=== PATIENT | female | born 1950 | race African-American/Black ===

== ENCOUNTER 2017-01-09 11:34 | Inpatient (IN) | payer MEDICARE, OTHER ==
[~2017-01-09] VITALS: Ht 162.6 cm; Wt 102.5 kg
[2017-01-09 12:28] LABS: BASOPHILS % 0.8 % (0.0-2.0); EOSINOPHILS % 0.2 % (0.0-5.0); HEMATOCRIT. 32.2 % (36.0-48.0); LYMPHOCYTES % 15.3 % (20.0-50.0); MEAN CORPUSCULAR HEMOGLOBIN 37.8 pg (28.0-32.0); MEAN CORPUSCULAR VOLUME 111.3 fL (81.0-99.0); MEAN PLATELET VOLUME 8.9 fl (7.4-10.4); MONOCYTES % 5.7 % (2.0-8.0); PLATELET 218 x1000/uL (130-400); RED CELL DISTRIBUTION WIDTH 14.6 % (11.6-14.6)
[2017-01-09 12:38] LABS: INR 1.6; PROTHROMBIN TIME 16.4 sec (9.4-11.6)
[2017-01-09 12:43] LABS: CARBON DIOXIDE 27 mEq/L (21-32); CHLORIDE 104 mEq/L (98-107)
[2017-01-09 13:27] LABS: PLATELET ESTIMATE NORMAL
[2017-01-09] MEDS ORDERED: SODIUM CHLORIDE 0.9% 1,000 ML IV ONE ×2 (13:37→15:50)
[2017-01-09] MEDS ORDERED: KETOROLAC 30MG/ML VIAL IV ONE (14:00)
[2017-01-09] MEDS ORDERED: PIPERACILLIN/TAZ 3.375G PREMIX 50 ML IV ONE (14:20)
[2017-01-09] MEDS ORDERED: VANCOMYCIN 1 G PREMIX 200 ML IV SCH (14:30)
[2017-01-09] MEDS ORDERED: PIPERACILLIN/TAZOBACTAM 3.375GM/50ML PREMIX IV ONE (14:30)
[2017-01-09 14:40] LABS: CLARITY URINE CLEAR (CLEAR); COLOR URINE DARK YELLOW (YELLOW); GLUCOSE URINE NEGATIVE (NEGATIVE); KETONES URINE TRACE (NEGATIVE); LEUKOCYTE ESTERASE URINE TRACE (NEGATIVE); NITRITE URINE NEGATIVE (NEGATIVE); OCCULT BLOOD URINE NEGATIVE (NEGATIVE); PROTEIN URINE NEGATIVE (NEGATIVE); SPECIFIC GRAVITY URINE 1.017 (1.005-1.030)
[2017-01-09] MEDS ORDERED: MAGNESIUM/ALUMINUM HYDROXIDE/SIMETHICONE 30ML UDC PO PRN (17:45)
[2017-01-09] MEDS ORDERED: ACETAMINOPHEN 650MG/20.3ML UDC GT PRN (17:45)
[2017-01-09] MEDS ORDERED: INFLUENZA VIRUS VACCINE 0.5ML SYR IM ONE (17:45)
[2017-01-09] MEDS ORDERED: IPRATROPIUM/ALBUTEROL 0.5-3(2.5)MG/3ML NEB INH PRN (17:45)
[2017-01-09 18:47] LABS: CARCINO EMBRYONIC ANTIGEN 2.2 ng/ml
[2017-01-09 18:58] LABS: HEPATITIS B SURFACE ANTIGEN NEGATIVE
[2017-01-09 19:07] LABS: FOLIC ACID (FOLATE) SERUM 6.5 ng/mL (>5.38)
[2017-01-09 19:26] LABS: HEPATITIS B CORE AB IGM NEGATIVE
[2017-01-09 19:27] LABS: HEPATITIS A AB IGM NEGATIVE (NEGATIVE)
[2017-01-09] MEDS: HYDROMORPHONE HCL/PF 2MG/ML CPJ IV PRN (21:25)
[2017-01-09 21:30] VITALS: BP 94/55
[2017-01-09] MEDS ORDERED: PNEUMOCOCCAL 23-VAL P-SAC VAC 0.5 ML IM ONE (22:00)
[2017-01-09 22:52] VITALS: BP 94/55
[2017-01-09] MEDS ORDERED: DEXTROSE 50% WATER 50ML SYRINGE IV PRN (23:30)
[2017-01-09] MEDS ORDERED: GABA-529 PO (23:39)
[2017-01-09] MEDS ORDERED: FOLI-43 PO (23:39)
[2017-01-09] MEDS ORDERED: KDUR20 PO (23:39)
[2017-01-10] VITALS (8 sets, daily range): BP systolic 84–103; BP diastolic 56–74
[2017-01-10] MEDS: HYDROMORPHONE HCL/PF 2MG/ML CPJ IV PRN ×2 (00:37→09:34)
[2017-01-10] MEDS: BLOOD SUGAR DIAGNOSTIC STRIP TEST SCH ×4 (06:49→21:00)
[2017-01-10] MEDS: INSULIN LISPRO 100 UNITS/ML SUBCUT SCH ×4 (07:20→21:00)
[2017-01-10 07:31] LABS: BASOPHILS % 0.3 % (0.0-2.0); EOSINOPHILS % 0.1 % (0.0-5.0); HEMATOCRIT. 28.6 % (36.0-48.0); HEMOGLOBIN. 9.9 g/dL (12.0-16.0); LYMPHOCYTES % 12.3 % (20.0-50.0); MEAN CORPUSCULAR HEMOGLOBIN 38.4 pg (28.0-32.0); MEAN CORPUSCULAR VOLUME 110.9 fL (81.0-99.0); MONOCYTES % 6.2 % (2.0-8.0); NEUTROPHILS % 81.1 % (40.0-76.0); PLATELET 173 x1000/uL (130-400); RED BLOOD CELL COUNT 2.58 mill/uL (4.2-5.4); RED CELL DISTRIBUTION WIDTH 14.5 % (11.6-14.6)
[2017-01-10 07:51] LABS: CARBON DIOXIDE 25 mEq/L (21-32); CHLORIDE 107 mEq/L (98-107)
[2017-01-10] MEDS ORDERED: ENOXAPARIN 40MG/0.4ML SYR SUBCUT SCH (09:00)
[2017-01-10] MEDS ORDERED: DOCUSATE SODIUM 100MG CAPSULE PO SCH (09:00)
[2017-01-10] MEDS: DOCUSATE SODIUM 250MG CAPSULE PO SCH (09:34)
[2017-01-10] MEDS ORDERED: CALCIUM CARBONATE 1250MG TABLET (500MG ELEMENTAL CALCIUM) PO NR (10:45)
[2017-01-10] MEDS: SODIUM CHLORIDE 0.9% 1,000 ML IV SCH ×2 (11:39→23:12)
[2017-01-10] MEDS: FOLIC ACID/VITAMIN B COMP W-C TABLET PO SCH (11:39)
[2017-01-10] MEDS: ONDANSETRON HCL 4MG/2ML VIAL IV PRN (11:49)
[2017-01-10] MEDS ORDERED: ERGOCALCIFEROL 50000UNITS CAPSULE PO NR (12:00)
[2017-01-10 13:02] LABS: TOTAL IRON BINDING CAPACITY 38 ug/dL (250-450)
[2017-01-10 16:52] LABS: CLARITY URINE CLOUDY (CLEAR); COLOR URINE ORANGE (YELLOW); GLUCOSE URINE NEGATIVE (NEGATIVE); KETONES URINE NEGATIVE (NEGATIVE); LEUKOCYTE ESTERASE URINE 1+ (NEGATIVE); NITRITE URINE POSITIVE (NEGATIVE); OCCULT BLOOD URINE 2+ (NEGATIVE); PH URINE 5.5 (4.5-8.0); PROTEIN URINE 1+ (NEGATIVE); SPECIFIC GRAVITY URINE 1.025 (1.005-1.030)
[2017-01-10 17:06] LABS: *AMPHETAMINES SCREEN URINE NEGATIVE (NEGATIVE); *BARBITURATES SCREEN URINE NEGATIVE (NEGATIVE); *BENZODIAZEPINES SCREEN URINE NEGATIVE (NEGATIVE); *COCAINE SCREEN URINE NEGATIVE (NEGATIVE); CANNABINOID URINE SCREEN NEGATIVE (NEGATIVE); METHADONE URINE SCREEN NEGATIVE (NEGATIVE); OPIATES URINE SCREEN PRESUMTIVE POSITIVE (NEGATIVE); PHENCYCLIDINE URINE SCREEN NEGATIVE (NEGATIVE)
[2017-01-10] MEDS: ENOXAPARIN 30MG/0.3ML SYR SUBCUT SCH (21:00)
[2017-01-11] VITALS (12 sets, daily range): BP systolic 90–114; BP diastolic 36–82
[2017-01-11] MEDS: LORAZEPAM 2MG/ML CPJ IV NR ×2 (00:48→08:02)
[2017-01-11] MEDS ORDERED: LORAZEPAM 2MG/ML CPJ IV NR (01:30)
[2017-01-11] MEDS ORDERED: LORAZEPAM 2MG/ML CPJ IM NR (02:30)
[2017-01-11] MEDS: BLOOD SUGAR DIAGNOSTIC STRIP TEST SCH ×4 (06:13→21:18)
[2017-01-11 06:46] LABS: BASOPHILS % 0.2 % (0.0-2.0); EOSINOPHILS % 0.3 % (0.0-5.0); HEMATOCRIT. 26.8 % (36.0-48.0); HEMOGLOBIN. 9.3 g/dL (12.0-16.0); LYMPHOCYTES % 20.4 % (20.0-50.0); MEAN CORPUSCULAR HEMOGLOBIN 38.2 pg (28.0-32.0); MEAN CORPUSCULAR VOLUME 110.8 fL (81.0-99.0); MEAN PLATELET VOLUME 9.2 fl (7.4-10.4); MONOCYTES % 8.9 % (2.0-8.0); NEUTROPHILS % 70.2 % (40.0-76.0); PLATELET 171 x1000/uL (130-400); RED BLOOD CELL COUNT 2.42 mill/uL (4.2-5.4); RED CELL DISTRIBUTION WIDTH 14.5 % (11.6-14.6)
[2017-01-11 06:59] LABS: AMMONIA 46 uMol/L (<32)
[2017-01-11] MEDS: INSULIN LISPRO 100 UNITS/ML SUBCUT SCH ×4 (07:20→21:00)
[2017-01-11] MEDS ORDERED: SODIUM BICARBONATE 4% (2.4MEQ) 5ML VIAL IV ONE (07:35)
[2017-01-11] MEDS ORDERED: LIDOCAINE HCL 1% 20ML VIAL (Pyxis) INJ ONE (07:35)
[2017-01-11 07:48] LABS: CARBON DIOXIDE 26 mEq/L (21-32); CHLORIDE 107 mEq/L (98-107)
[2017-01-11] MEDS: FOLIC ACID/VITAMIN B COMP W-C TABLET PO SCH (09:00)
[2017-01-11] MEDS: DOCUSATE SODIUM 250MG CAPSULE PO SCH (09:00)
[2017-01-11] MEDS: CALCIUM CARBONATE 1250MG TABLET (500MG ELEMENTAL CALCIUM) PO SCH (09:00)
[2017-01-11] MEDS ORDERED: RISPERIDONE 0.25MG TABLET PO SCH (10:00)
[2017-01-11] MEDS ORDERED: LORAZEPAM 2MG/ML CPJ IV SCH (10:00)
[2017-01-11] MEDS ORDERED: LORAZEPAM 2MG/ML CPJ IM SCH (10:15)
[2017-01-11] MEDS: ENOXAPARIN 30MG/0.3ML SYR SUBCUT SCH ×2 (10:16→21:12)
[2017-01-11] MEDS: LACTULOSE 20G/30ML UDC PO SCH ×4 (11:52→21:13)
[2017-01-11] MEDS: SODIUM CHLORIDE 0.9% 1,000 ML IV SCH ×2 (11:52→21:15)
[2017-01-11 14:10] LABS: AMMONIA 38 uMol/L (<32)
[2017-01-11 14:19] LABS: ETHANOL BLOOD < 10 mg/dL; T4 FREE 0.92 ng/dL (0.76-1.46)
[2017-01-11] MEDS: LORAZEPAM 0.5MG TABLET PO PRN ×2 (15:03→23:10)
[2017-01-12] VITALS (30 sets, daily range): BP systolic 72–105; BP diastolic 37–69
[2017-01-12] MEDS: LACTULOSE 20G/30ML UDC PO SCH ×3 (05:30→21:19)
[2017-01-12 06:33] LABS: AMMONIA 52 uMol/L (<32)
[2017-01-12] MEDS: SODIUM CHLORIDE 0.9% 1,000 ML IV SCH (06:50)
[2017-01-12] MEDS: BLOOD SUGAR DIAGNOSTIC STRIP TEST SCH ×4 (07:20→21:02)
[2017-01-12] MEDS: INSULIN LISPRO 100 UNITS/ML SUBCUT SCH ×4 (07:20→21:00)
[2017-01-12] MEDS: DOCUSATE SODIUM 250MG CAPSULE PO SCH (09:00)
[2017-01-12 09:10] LABS: BASOPHILS % 0.5 % (0.0-2.0); EOSINOPHILS % 0.3 % (0.0-5.0); MEAN CORPUSCULAR HEMOGLOBIN 38.8 pg (28.0-32.0); MEAN CORPUSCULAR VOLUME 111.7 fL (81.0-99.0); MEAN PLATELET VOLUME 9.5 fl (7.4-10.4); MONOCYTES % 8.8 % (2.0-8.0); NEUTROPHILS % 75.4 % (40.0-76.0); PLATELET 165 x1000/uL (130-400); RED BLOOD CELL COUNT 2.33 mill/uL (4.2-5.4); RED CELL DISTRIBUTION WIDTH 15.2 % (11.6-14.6)
[2017-01-12] MEDS: ENOXAPARIN 30MG/0.3ML SYR SUBCUT SCH ×2 (09:26→21:20)
[2017-01-12] MEDS: CALCIUM CARBONATE 1250MG TABLET (500MG ELEMENTAL CALCIUM) PO SCH (09:27)
[2017-01-12] MEDS: MIDODRINE HCL 5MG TABLET PO SCH ×3 (09:27→16:57)
[2017-01-12] MEDS: FOLIC ACID/VITAMIN B COMP W-C TABLET PO SCH (09:27)
[2017-01-12 09:31] LABS: CARBON DIOXIDE 25 mEq/L (21-32); CHLORIDE 112 mEq/L (98-107)
[2017-01-12] MEDS ORDERED: POTASSIUM CHLORIDE INJ 20 MEQ in DEXT 5%/0.9% NACL 1,000 ML IV SCH (09:45)
[2017-01-12] MEDS ORDERED: SODIUM CHLORIDE 0.9% 500 ML IV NR (11:00)
[2017-01-12] MEDS: DEXT 5%/0.9% NACL KCL 20MEQ/L 1,000 ML IV SCH ×2 (11:28→19:58)
[2017-01-12] MEDS ORDERED: ALBUMIN HUMAN 25GM/100ML (25%) IV NR (11:30)
[2017-01-13] VITALS (14 sets, daily range): BP systolic 91–117; BP diastolic 34–70
[2017-01-13] MEDS: DEXT 5%/0.9% NACL KCL 20MEQ/L 1,000 ML IV SCH (03:25)
[2017-01-13] MEDS: LACTULOSE 20G/30ML UDC PO SCH ×3 (05:10→21:39)
[2017-01-13] MEDS: INSULIN LISPRO 100 UNITS/ML SUBCUT SCH ×4 (07:20→21:00)
[2017-01-13 07:24] LABS: BASOPHILS % 0.3 % (0.0-2.0); EOSINOPHILS % 0.4 % (0.0-5.0); HEMATOCRIT. 24.9 % (36.0-48.0); HEMOGLOBIN. 8.6 g/dL (12.0-16.0); LYMPHOCYTES % 21.1 % (20.0-50.0); MEAN CORPUSCULAR HEMOGLOBIN 38.7 pg (28.0-32.0); MEAN CORPUSCULAR VOLUME 112.4 fL (81.0-99.0); MEAN PLATELET VOLUME 9.1 fl (7.4-10.4); MONOCYTES % 9.5 % (2.0-8.0); NEUTROPHILS % 68.7 % (40.0-76.0); PLATELET 155 x1000/uL (130-400); RED BLOOD CELL COUNT 2.22 mill/uL (4.2-5.4); RED CELL DISTRIBUTION WIDTH 14.9 % (11.6-14.6)
[2017-01-13] MEDS: BLOOD SUGAR DIAGNOSTIC STRIP TEST SCH ×4 (07:35→21:14)
[2017-01-13 08:00] LABS: CARBON DIOXIDE 24 mEq/L (21-32); CHLORIDE 116 mEq/L (98-107)
[2017-01-13] MEDS: DOCUSATE SODIUM 250MG CAPSULE PO SCH (08:08)
[2017-01-13] MEDS ORDERED: POTASSIUM CHLORIDE 20MEQ TABLET SR PO ONE (08:30)
[2017-01-13] MEDS ORDERED: POTASSIUM CHLORIDE 20MEQ TABLET SR PO SCH (08:45)
[2017-01-13] MEDS: FOLIC ACID/VITAMIN B COMP W-C TABLET PO SCH (08:46)
[2017-01-13] MEDS: CALCIUM CARBONATE 1250MG TABLET (500MG ELEMENTAL CALCIUM) PO SCH (08:46)
[2017-01-13] MEDS: ENOXAPARIN 30MG/0.3ML SYR SUBCUT SCH ×2 (08:47→21:39)
[2017-01-13] MEDS: FERROUS SULFATE 325MG TABLET PO SCH ×3 (08:49→16:21)
[2017-01-13] MEDS: MIDODRINE HCL 2.5MG TABLET PO SCH ×3 (08:49→21:39)
[2017-01-13] MEDS: ONDANSETRON HCL 4MG/2ML VIAL IV PRN (08:55)
[2017-01-13] MEDS ORDERED: DEXT 5%/0.45% NACL KCL 20MEQ/L 1,000 ML IV SCH ×2 (10:30→12:00)
[2017-01-13 11:07] LABS: HEMATOCRIT 26.7 % (36.0-48.0)
[2017-01-13] MEDS: DULOXETINE HCL 20MG DR CAPSULE PO SCH (14:40)
[2017-01-13] MEDS: DEXT 5%/0.45% NACL KCL 20MEQ/L 1,000 ML IV SCH (14:41)
[2017-01-13 19:12] LABS: ANTI-DNA DOUBLE STRANDED QUANT 5 IU/mL (0-9); ANTI-NUCLEAR ANTIBODIES DIRECT Negative (Negative)
[2017-01-14] VITALS (21 sets, daily range): BP systolic 78–115; BP diastolic 29–88
[2017-01-14] MEDS: DEXT 5%/0.45% NACL KCL 20MEQ/L 1,000 ML IV SCH ×2 (03:40→17:45)
[2017-01-14] MEDS: LACTULOSE 20G/30ML UDC PO SCH ×4 (06:00→21:36)
[2017-01-14 06:14] LABS: BASOPHILS % 0.2 % (0.0-2.0); EOSINOPHILS % 0.6 % (0.0-5.0); HEMATOCRIT. 27.7 % (36.0-48.0); HEMOGLOBIN. 9.1 g/dL (12.0-16.0); LYMPHOCYTES % 18.1 % (20.0-50.0); MEAN CORPUSCULAR HEMOGLOBIN 37.3 pg (28.0-32.0); MEAN CORPUSCULAR VOLUME 113.1 fL (81.0-99.0); MEAN PLATELET VOLUME 9.2 fl (7.4-10.4); MONOCYTES % 7.5 % (2.0-8.0); NEUTROPHILS % 73.6 % (40.0-76.0); PLATELET 155 x1000/uL (130-400); RED BLOOD CELL COUNT 2.45 mill/uL (4.2-5.4)
[2017-01-14 06:25] LABS: AMMONIA 32 uMol/L (<32)
[2017-01-14] MEDS: MIDODRINE HCL 2.5MG TABLET PO SCH ×4 (06:45→21:21)
[2017-01-14] MEDS: BLOOD SUGAR DIAGNOSTIC STRIP TEST SCH ×4 (06:52→21:22)
[2017-01-14 06:57] LABS: CARBON DIOXIDE 26 mEq/L (21-32); CHLORIDE 116 mEq/L (98-107); PHOSPHORUS 1.8 mg/dL (2.5-4.9)
[2017-01-14] MEDS: INSULIN LISPRO 100 UNITS/ML SUBCUT SCH ×4 (07:20→21:00)
[2017-01-14] MEDS: FOLIC ACID/VITAMIN B COMP W-C TABLET PO SCH (08:34)
[2017-01-14] MEDS: DOCUSATE SODIUM 250MG CAPSULE PO SCH (08:34)
[2017-01-14] MEDS: CALCIUM CARBONATE 1250MG TABLET (500MG ELEMENTAL CALCIUM) PO SCH (08:34)
[2017-01-14] MEDS: POTASSIUM CHLORIDE 20MEQ TABLET SR PO SCH (08:34)
[2017-01-14] MEDS: DULOXETINE HCL 20MG DR CAPSULE PO SCH (08:34)
[2017-01-14] MEDS: FERROUS SULFATE 325MG TABLET PO SCH ×3 (08:34→17:35)
[2017-01-14] MEDS: POTASSIUM-SODIUM PHOSPHATE POWDER PACKET PO SCH ×2 (09:00→17:35)
[2017-01-14] MEDS: ENOXAPARIN 30MG/0.3ML SYR SUBCUT SCH ×2 (09:00→21:30)
[2017-01-15] VITALS (17 sets, daily range): BP systolic 84–115; BP diastolic 52–76
[2017-01-15] MEDS: MIDODRINE HCL 2.5MG TABLET PO SCH ×3 (05:04→21:49)
[2017-01-15] MEDS: DEXT 5%/0.45% NACL KCL 20MEQ/L 1,000 ML IV SCH ×2 (05:04→23:59)
[2017-01-15] MEDS: LACTULOSE 20G/30ML UDC PO SCH ×3 (05:05→21:48)
[2017-01-15] MEDS: BLOOD SUGAR DIAGNOSTIC STRIP TEST SCH ×4 (06:18→21:55)
[2017-01-15 06:38] LABS: BASOPHILS % 0.2 % (0.0-2.0); EOSINOPHILS % 0.9 % (0.0-5.0); HEMATOCRIT. 27.6 % (36.0-48.0); HEMOGLOBIN. 9.4 g/dL (12.0-16.0); LYMPHOCYTES % 23.2 % (20.0-50.0); MEAN CORPUSCULAR HEMOGLOBIN 38.1 pg (28.0-32.0); MEAN CORPUSCULAR VOLUME 111.5 fL (81.0-99.0); MONOCYTES % 8.8 % (2.0-8.0); NEUTROPHILS % 66.9 % (40.0-76.0); PLATELET 174 x1000/uL (130-400); RED BLOOD CELL COUNT 2.47 mill/uL (4.2-5.4)
[2017-01-15 06:54] LABS: CARBON DIOXIDE 27 mEq/L (21-32); CHLORIDE 114 mEq/L (98-107); PHOSPHORUS 1.4 mg/dL (2.5-4.9)
[2017-01-15] MEDS: INSULIN LISPRO 100 UNITS/ML SUBCUT SCH ×4 (07:20→21:00)
[2017-01-15] MEDS: FOLIC ACID/VITAMIN B COMP W-C TABLET PO SCH (09:05)
[2017-01-15] MEDS: DOCUSATE SODIUM 250MG CAPSULE PO SCH (09:05)
[2017-01-15] MEDS: FERROUS SULFATE 325MG TABLET PO SCH ×3 (09:06→17:22)
[2017-01-15] MEDS: POTASSIUM CHLORIDE 20MEQ TABLET SR PO SCH (09:07)
[2017-01-15] MEDS: ENOXAPARIN 30MG/0.3ML SYR SUBCUT SCH ×2 (09:07→21:49)
[2017-01-15] MEDS: POTASSIUM-SODIUM PHOSPHATE POWDER PACKET PO SCH ×2 (09:07→17:22)
[2017-01-15] MEDS: CALCIUM CARBONATE 1250MG TABLET (500MG ELEMENTAL CALCIUM) PO SCH (09:08)
[2017-01-15] MEDS: DULOXETINE HCL 20MG DR CAPSULE PO SCH (10:57)
[2017-01-16] VITALS (9 sets, daily range): BP systolic 97–120; BP diastolic 55–78
[2017-01-16] MEDS: LACTULOSE 20G/30ML UDC PO SCH ×2 (06:00→14:00)
[2017-01-16] MEDS: MIDODRINE HCL 2.5MG TABLET PO SCH ×2 (06:15→14:00)
[2017-01-16] MEDS: BLOOD SUGAR DIAGNOSTIC STRIP TEST SCH ×2 (06:19→11:12)
[2017-01-16 06:45] LABS: BASOPHILS % 0.4 % (0.0-2.0); EOSINOPHILS % 1.3 % (0.0-5.0); HEMATOCRIT. 26.2 % (36.0-48.0); HEMOGLOBIN. 8.9 g/dL (12.0-16.0); LYMPHOCYTES % 28.4 % (20.0-50.0); MEAN CORPUSCULAR HEMOGLOBIN 38.6 pg (28.0-32.0); MEAN CORPUSCULAR VOLUME 113.7 fL (81.0-99.0); MEAN PLATELET VOLUME 8.9 fl (7.4-10.4); MONOCYTES % 10.3 % (2.0-8.0); NEUTROPHILS % 59.6 % (40.0-76.0); PLATELET 192 x1000/uL (130-400); RED CELL DISTRIBUTION WIDTH 15.4 % (11.6-14.6)
[2017-01-16 06:54] LABS: AMMONIA 40 uMol/L (<32)
[2017-01-16 07:09] LABS: CARBON DIOXIDE 24 mEq/L (21-32); CHLORIDE 115 mEq/L (98-107)
[2017-01-16] MEDS: INSULIN LISPRO 100 UNITS/ML SUBCUT SCH ×2 (07:20→12:08)
[2017-01-16] MEDS: POTASSIUM CHLORIDE 20MEQ TABLET SR PO SCH (08:18)
[2017-01-16] MEDS: DOCUSATE SODIUM 250MG CAPSULE PO SCH (08:18)
[2017-01-16] MEDS: DULOXETINE HCL 20MG DR CAPSULE PO SCH (08:18)
[2017-01-16] MEDS: POTASSIUM-SODIUM PHOSPHATE POWDER PACKET PO SCH (08:18)
[2017-01-16] MEDS: FOLIC ACID/VITAMIN B COMP W-C TABLET PO SCH (08:18)
[2017-01-16] MEDS: CALCIUM CARBONATE 1250MG TABLET (500MG ELEMENTAL CALCIUM) PO SCH (08:18)
[2017-01-16] MEDS: ENOXAPARIN 30MG/0.3ML SYR SUBCUT SCH (08:19)
[2017-01-16] MEDS: DEXT 5%/0.45% NACL KCL 20MEQ/L 1,000 ML IV SCH (09:06)
[2017-01-16] MEDS: FERROUS SULFATE 325MG TABLET PO SCH ×2 (09:17→12:34)
[2017-01-16] MEDS ORDERED: POTASSIUM-SODIUM PHOSPHATE POWDER PACKET PO SCH (17:00)
== END 2017-01-16 16:00 | DRG 871 ==
LOC: ER 11:59 → 3WST 15:51 → EDBEDREQ 15:56 → ENRESERV 18:12
PROVIDERS: ADMIT Internal Medicine Geriatric Medicine; ATTEND Internal Medicine Geriatric Medicine
PROC: 02HV33Z Insertion of Infusion Device into Superior Vena Cava, Percutaneous Approach (ICD-10-PCS; principal; 2017-01-11)
PROC: B548ZZA Ultrasonography of Superior Vena Cava, Guidance (ICD-10-PCS; 2017-01-11)
DX: A41.9 Sepsis, unspecified organism (principal); G92 Toxic encephalopathy; E87.0 Hyperosmolality and hypernatremia; D68.9 Coagulation defect, unspecified; I95.9 Hypotension, unspecified; K72.90 Hepatic failure, unspecified without coma; E83.39 Other disorders of phosphorus metabolism; K75.81 Nonalcoholic steatohepatitis (NASH); J44.9 Chronic obstructive pulmonary disease, unspecified; M48.56XA Collapsed vertebra, not elsewhere classified, lumbar region, initial encounter for fracture; N39.0 Urinary tract infection, site not specified; H53.2 Diplopia; R26.9 Unspecified abnormalities of gait and mobility; D50.9 Iron deficiency anemia, unspecified; E87.6 Hypokalemia; F17.200 Nicotine dependence, unspecified, uncomplicated; F32.9 Major depressive disorder, single episode, unspecified; I10 Essential (primary) hypertension; K59.09 Other constipation; K64.4 Residual hemorrhoidal skin tags; K64.8 Other hemorrhoids; M48.061 Spinal stenosis, lumbar region without neurogenic claudication; R29.6 Repeated falls; R74.0 Nonspecific elevation of levels of transaminase and lactic acid dehydrogenase [LDH]; M54.16 Radiculopathy, lumbar region; Z79.899 Other long term (current) drug therapy; Z90.49 Acquired absence of other specified parts of digestive tract; Z98.84 Bariatric surgery status; Z90.81 Acquired absence of spleen
CPT/HCPCS: 36415; 36569; 70450; 70551; 71010; 72148; 74000; 76705; 76937; 80048; 80053; 80076; 80305; 81001; 82140; 82270; 82378; 82607; 82652; 82746; 82962; 83036; 83540; 83550; 83605; 83735; 84100; 84207; 84439; 84443; 84481; 85014; 85018; 85025; 85610; 86038; 86141; 86225; 86705; 86709; 86803; 86850; 86900; 87040; 87086; 87340; 90686; 90732; 92610; 93005; 93306; 93970; 96361; 96365; 96367; 96375; 97162; 97166; 97530; 97535; 99291; A6261; C1725; C1893; G0482; J1170; J1650; J1885; J2060; J2405; J2543; J3490; J7030; J7040; P9047; A4315

== ENCOUNTER 2017-01-16 16:00 | Inpatient (IN) | payer MEDICARE, MEDICAID ==
[~2017-01-16] VITALS: Ht 162.6 cm; Wt 102.5 kg
[2017-01-16 16:00] VITALS: BP 108/66
[~2017-01-16 16:00] MED LIST: FOLI-43 PO; GABA-529 PO; KDUR20 PO
[2017-01-16 16:45] VITALS: BP 108/66
[2017-01-16] MEDS ORDERED: ONDANSETRON HCL 4MG TABLET PO PRN (17:30)
[2017-01-16] MEDS ORDERED: MAGNESIUM/ALUMINUM HYDROXIDE/SIMETHICONE 30ML UDC PO PRN (17:30)
[2017-01-16] MEDS ORDERED: IPRATROPIUM/ALBUTEROL 0.5-3(2.5)MG/3ML NEB HHN PRN (17:30)
[2017-01-16] MEDS ORDERED: DEXTROSE 50% WATER 50ML SYRINGE IV PRN (18:00)
[2017-01-16 19:46] VITALS: BP 140/66
[2017-01-16 20:00] VITALS: BP 140/66
[2017-01-16] MEDS: MIDODRINE HCL 2.5MG TABLET PO SCH (20:00)
[2017-01-16] MEDS: POTASSIUM-SODIUM PHOSPHATE POWDER PACKET PO SCH (20:45)
[2017-01-16] MEDS: INSULIN LISPRO 100 UNITS/ML SUBCUT SCH (20:46)
[2017-01-16] MEDS: BLOOD SUGAR DIAGNOSTIC STRIP TEST SCH (20:46)
[2017-01-16] MEDS: ENOXAPARIN 30MG/0.3ML SYR SUBCUT SCH (20:46)
[2017-01-16] MEDS: LACTULOSE 20G/30ML UDC PO SCH (20:47)
[2017-01-17] MEDS: LACTULOSE 20G/30ML UDC PO SCH ×3 (06:00→21:26)
[2017-01-17] MEDS: BLOOD SUGAR DIAGNOSTIC STRIP TEST SCH ×4 (06:08→20:52)
[2017-01-17] MEDS: INSULIN LISPRO 100 UNITS/ML SUBCUT SCH ×4 (06:08→20:52)
[2017-01-17 08:00] VITALS: BP 126/65
[2017-01-17] MEDS: MIDODRINE HCL 2.5MG TABLET PO SCH ×3 (08:58→16:37)
[2017-01-17] MEDS: FOLIC ACID/VITAMIN B COMP W-C TABLET PO SCH (08:58)
[2017-01-17] MEDS: FERROUS SULFATE 325MG TABLET PO SCH ×3 (08:58→16:37)
[2017-01-17] MEDS: CALCIUM CARBONATE 1250MG TABLET (500MG ELEMENTAL CALCIUM) PO SCH (08:59)
[2017-01-17] MEDS ORDERED: DULOXETINE HCL 20MG DR CAPSULE PO SCH (09:00)
[2017-01-17] MEDS: POTASSIUM-SODIUM PHOSPHATE POWDER PACKET PO SCH ×2 (09:00→17:00)
[2017-01-17] MEDS: DOCUSATE SODIUM 250MG CAPSULE PO SCH (09:00)
[2017-01-17] MEDS: POTASSIUM CHLORIDE 20MEQ TABLET SR PO SCH (09:00)
[2017-01-17] MEDS: ENOXAPARIN 30MG/0.3ML SYR SUBCUT SCH ×2 (09:02→20:52)
[2017-01-17] MEDS: ACETAMINOPHEN 325MG TABLET PO PRN (11:50)
[2017-01-17] MEDS ORDERED: DULOXETINE HCL 30MG DR CAPSULE PO NR (15:15)
[2017-01-17 20:00] VITALS: BP 101/61
[2017-01-17 22:57] LABS: GLUCOSE URINE NEGATIVE (NEGATIVE); KETONES URINE TRACE (NEGATIVE); LEUKOCYTE ESTERASE URINE 2+ (NEGATIVE); NITRITE URINE POSITIVE (NEGATIVE); OCCULT BLOOD URINE 3+ (NEGATIVE); PH URINE 6.5 (4.5-8.0); PROTEIN URINE TRACE (NEGATIVE); SPECIFIC GRAVITY URINE 1.016 (1.005-1.030)
[2017-01-17 22:58] LABS: CLARITY URINE CLOUDY (CLEAR); COLOR URINE DARK YELLOW (YELLOW)
[2017-01-18] MEDS: LACTULOSE 20G/30ML UDC PO SCH ×4 (06:00→21:28)
[2017-01-18] MEDS: BLOOD SUGAR DIAGNOSTIC STRIP TEST SCH (06:11)
[2017-01-18 06:50] LABS: BASOPHILS % 0.8 % (0.0-2.0); EOSINOPHILS % 0.8 % (0.0-5.0); HEMATOCRIT. 27.7 % (36.0-48.0); HEMOGLOBIN. 9.3 g/dL (12.0-16.0); LYMPHOCYTES % 29.8 % (20.0-50.0); MEAN CORPUSCULAR HEMOGLOBIN 37.4 pg (28.0-32.0); MEAN CORPUSCULAR VOLUME 111.2 fL (81.0-99.0); MEAN PLATELET VOLUME 9.1 fl (7.4-10.4); MONOCYTES % 11.8 % (2.0-8.0); NEUTROPHILS % 56.8 % (40.0-76.0); PLATELET 180 x1000/uL (130-400); RED BLOOD CELL COUNT 2.49 mill/uL (4.2-5.4); RED CELL DISTRIBUTION WIDTH 15.2 % (11.6-14.6)
[2017-01-18] MEDS: INSULIN LISPRO 100 UNITS/ML SUBCUT SCH (07:00)
[2017-01-18 07:49] LABS: CARBON DIOXIDE 21 mEq/L (21-32); CHLORIDE 115 mEq/L (98-107); PHOSPHORUS 2.7 mg/dL (2.5-4.9)
[2017-01-18 08:00] VITALS: BP 114/68
[2017-01-18] MEDS: FOLIC ACID/VITAMIN B COMP W-C TABLET PO SCH (09:36)
[2017-01-18] MEDS: CALCIUM CARBONATE 1250MG TABLET (500MG ELEMENTAL CALCIUM) PO SCH (09:36)
[2017-01-18] MEDS: DOCUSATE SODIUM 250MG CAPSULE PO SCH (09:36)
[2017-01-18] MEDS: DULOXETINE HCL 30MG DR CAPSULE PO SCH (09:36)
[2017-01-18] MEDS: MIDODRINE HCL 2.5MG TABLET PO SCH ×3 (09:37→17:17)
[2017-01-18] MEDS: POTASSIUM CHLORIDE 20MEQ TABLET SR PO SCH ×2 (09:37→17:22)
[2017-01-18] MEDS: ENOXAPARIN 30MG/0.3ML SYR SUBCUT SCH ×2 (09:37→21:22)
[2017-01-18] MEDS: FERROUS SULFATE 325MG TABLET PO SCH ×3 (09:37→17:00)
[2017-01-18] MEDS: POTASSIUM-SODIUM PHOSPHATE POWDER PACKET PO SCH ×2 (09:37→17:00)
[2017-01-18] MEDS: ACETAMINOPHEN 325MG TABLET PO PRN (09:47)
[2017-01-18] MEDS ORDERED: LORAZEPAM 2MG/ML CPJ IM PRN (16:22)
[2017-01-18] MEDS ORDERED: LORAZEPAM 0.5MG TABLET PO PRN (16:22)
[2017-01-18 20:00] VITALS: BP 116/59
[2017-01-19] MEDS: POTASSIUM CHLORIDE 20MEQ TABLET SR PO SCH ×4 (05:55→21:25)
[2017-01-19] MEDS: LACTULOSE 20G/30ML UDC PO SCH ×3 (05:55→21:20)
[2017-01-19 07:00] VITALS: BP 99/60
[2017-01-19 07:37] LABS: CARBON DIOXIDE 25 mEq/L (21-32); CHLORIDE 114 mEq/L (98-107)
[2017-01-19] MEDS: CALCIUM CARBONATE 1250MG TABLET (500MG ELEMENTAL CALCIUM) PO SCH (09:00)
[2017-01-19] MEDS: POTASSIUM-SODIUM PHOSPHATE POWDER PACKET PO SCH ×2 (09:00→16:21)
[2017-01-19] MEDS: FERROUS SULFATE 325MG TABLET PO SCH ×3 (09:00→16:21)
[2017-01-19] MEDS: DULOXETINE HCL 30MG DR CAPSULE PO SCH (09:00)
[2017-01-19] MEDS: DOCUSATE SODIUM 250MG CAPSULE PO SCH (09:00)
[2017-01-19] MEDS: FOLIC ACID/VITAMIN B COMP W-C TABLET PO SCH (09:00)
[2017-01-19] MEDS: ENOXAPARIN 30MG/0.3ML SYR SUBCUT SCH ×2 (09:19→21:21)
[2017-01-19] MEDS: MIDODRINE HCL 2.5MG TABLET PO SCH ×3 (09:20→16:21)
[2017-01-19 12:00] VITALS: BP 104/64
[2017-01-19] MEDS: ACETAMINOPHEN 325MG TABLET PO PRN (16:19)
[2017-01-19 19:00] VITALS: BP 122/79
[2017-01-20] MEDS: LACTULOSE 20G/30ML UDC PO SCH ×2 (06:00→13:35)
[2017-01-20] MEDS: POTASSIUM CHLORIDE 20MEQ TABLET SR PO SCH (06:00)
[2017-01-20] MEDS ORDERED: LEVOFLOXACIN 500MG TABLET PO NR (07:15)
[2017-01-20] MEDS: DOCUSATE SODIUM 250MG CAPSULE PO SCH (08:41)
[2017-01-20] MEDS: DULOXETINE HCL 30MG DR CAPSULE PO SCH (08:41)
[2017-01-20] MEDS: FERROUS SULFATE 325MG TABLET PO SCH ×2 (08:42→13:35)
[2017-01-20] MEDS: POTASSIUM-SODIUM PHOSPHATE POWDER PACKET PO SCH (08:42)
[2017-01-20] MEDS: ENOXAPARIN 30MG/0.3ML SYR SUBCUT SCH (08:42)
[2017-01-20] MEDS: FOLIC ACID/VITAMIN B COMP W-C TABLET PO SCH (08:42)
[2017-01-20] MEDS: CALCIUM CARBONATE 1250MG TABLET (500MG ELEMENTAL CALCIUM) PO SCH (08:42)
[2017-01-20] MEDS: MIDODRINE HCL 2.5MG TABLET PO SCH ×2 (08:42→13:35)
[2017-01-20 13:00] VITALS: BP 102/63
[2017-01-20 13:53] VITALS: BP 102/63
[2017-01-21] MEDS ORDERED: LEVOFLOXACIN 500MG TABLET PO SCH (11:00)
== END 2017-01-20 14:25 | disposition home health service (06) | DRG 92 ==
PROVIDERS: ADMIT Psychiatry & Neurology Neurology; ATTEND Internal Medicine Geriatric Medicine
DX: G92 Toxic encephalopathy (principal); E87.0 Hyperosmolality and hypernatremia; D68.9 Coagulation defect, unspecified; I95.9 Hypotension, unspecified; E83.39 Other disorders of phosphorus metabolism; G62.9 Polyneuropathy, unspecified; K72.90 Hepatic failure, unspecified without coma; M48.56XA Collapsed vertebra, not elsewhere classified, lumbar region, initial encounter for fracture; N39.0 Urinary tract infection, site not specified; D53.9 Nutritional anemia, unspecified; E03.9 Hypothyroidism, unspecified; F32.9 Major depressive disorder, single episode, unspecified; H53.2 Diplopia; I10 Essential (primary) hypertension; K21.9 Gastro-esophageal reflux disease without esophagitis; M48.061 Spinal stenosis, lumbar region without neurogenic claudication; M81.0 Age-related osteoporosis without current pathological fracture; R29.6 Repeated falls; R26.9 Unspecified abnormalities of gait and mobility; M19.90 Unspecified osteoarthritis, unspecified site; K59.00 Constipation, unspecified; E87.6 Hypokalemia; R53.81 Other malaise; R79.89 Other specified abnormal findings of blood chemistry; M54.16 Radiculopathy, lumbar region; K64.9 Unspecified hemorrhoids; E80.6 Other disorders of bilirubin metabolism; Z90.81 Acquired absence of spleen; Z98.84 Bariatric surgery status
CPT/HCPCS: 36415; 80048; 81001; 82962; 83735; 84100; 85025; 87077; 87086; 87186; 92610; 93971; 97110; 97116; 97162; 97166; 97530; 97535; J1650; J2060